=== PATIENT | female | born 1975 | race Caucasian/White ===

== ENCOUNTER 2021-06-01 11:51 | Emergency (ER) | payer MEDICARE, OTHER ==
[~2021-06-01 11:51] MED LIST: ASPIRIN CHEWABL81 MG PO; ATROVENT INH S2.5 ML INH; LEVAQUIN750 MG PO; NEURONTIN 300300 MG PO; NEURONTIN300 MG PO; PROVENTIL HFA 61 INH INH; SEROQUEL400 MG PO; SUBOXONE 8 MG-1 EACH SL; VENTOLIN/PROVE0.5 ML INH; ZANAFLEX4 MG PO
[2021-06-01 12:40] LABS: HEMOGLOBIN 12.6 gm/dl (12.3-15.3); RED BLOOD COUNT 3.5 M/UL (4.00-5.10); WHITE BLOOD COUNT 7.8 K/UL (4.5-11.0)
[2021-06-01 13:30] LABS: BUN/CREATININE RATIO 7 (0-10)
[2021-06-01] MEDS ORDERED: OMNICEF 300 MG300 MG PO (13:49)
== END 2021-06-01 14:24 | disposition home or self-care (01) ==
LOC: ER1 11:51
PROVIDERS: Emergency Medicine
DX: N39.0 Urinary tract infection, site not specified (principal); R60.0 Localized edema; F17.200 Nicotine dependence, unspecified, uncomplicated; Z20.822 Contact with and (suspected) exposure to COVID-19
CPT/HCPCS: 71045; 80053; 81001; 82550; 82553; 83874; 83880; 84484; 85025; 87077; 87086; 87186; 96374; 99283; J0696; U0002

== ENCOUNTER 2022-01-17 15:18 | Emergency (ER) | payer MEDICARE, OTHER ==
[2022-01-17] MEDS ORDERED: OMNICEF 300 MG300 MG PO (21:57)
== END 2022-01-17 16:14 | disposition left against medical advice (07) ==
LOC: ER1 15:18
DX: Z53.21 Procedure and treatment not carried out due to patient leaving prior to being seen by health care provider (principal)

== ENCOUNTER 2022-01-17 16:57 | Emergency (ER) | payer MEDICARE, OTHER ==
[2022-01-17 21:19] LABS: HEMOGLOBIN 11.2 gm/dl (12.3-15.3); RED BLOOD COUNT 3.5 M/UL (4.00-5.10); WHITE BLOOD COUNT 9.9 K/UL (4.5-11.0)
[2022-01-17 21:48] LABS: BUN/CREATININE RATIO 14 (0-10)
[2022-01-17] MEDS ORDERED: OMNICEF 300 MG300 MG PO (21:57)
== END 2022-01-17 23:15 | disposition home or self-care (01) ==
LOC: ER1 16:57
PROVIDERS: Physician Assistant; Student in an Organized Health Care Education/Training Program
DX: S80.812A Abrasion, left lower leg, initial encounter (principal); S80.811A Abrasion, right lower leg, initial encounter; E78.5 Hyperlipidemia, unspecified; N39.0 Urinary tract infection, site not specified; J44.9 Chronic obstructive pulmonary disease, unspecified; F15.10 Other stimulant abuse, uncomplicated; F17.210 Nicotine dependence, cigarettes, uncomplicated; W19.XXXA Unspecified fall, initial encounter
CPT/HCPCS: 73610; 80053; 80307; 81001; 82550; 82553; 84484; 85025; 96372; 99283; J0696; J1885

== ENCOUNTER → 2022-01-17 | Emergency (ER) | payer MEDICARE, OTHER ==
[~2022-01-17] MED LIST changes: +OMNICEF 300 MG300 MG PO
== END | disposition left against medical advice (07) ==
LOC: ER1 09:16
DX: Z53.21 Procedure and treatment not carried out due to patient leaving prior to being seen by health care provider (principal)